=== PATIENT | female | born 1990 | race Caucasian/White ===

== ENCOUNTER 2016-12-20 01:45 | Emergency (ER) | payer OTHER ==
[~2016-12-20] VITALS: Ht 154.9 cm; Wt 61.2 kg
[2016-12-20 01:51] VITALS: BP 100/67
--- NOTE | 2016-12-20 02:56 | NUR ---
Patient ambulated to bed 07.
--- NOTE | 2016-12-20 03:06 | NUR ---
Dr. Givens evaluating patient at bedside.
--- NOTE | 2016-12-20 03:15 | NUR ---
LAB at bedside.
--- NOTE | 2016-12-20 03:31 | NUR ---
RT FLANK PAIN RADIATING TO HER BACK STARTED LAST NIGHT AT 2100HOUR, LMP JULY, 18 WEEKS PT DENIES N/V/D; SKIN IS PINK/WARM/DRY; AAOX4 WITH EVEN AND STEADY GAIT; LUNGS CLEAR BL; HR EVEN AND REGULAR; PT DENIES ANY FEVER, CP, SOB, OR COUGH AT THIS TIME; PATIENT STATES PAIN OF 9/10 AT THIS TIME; VSS; PATIENT POSITIONED FOR COMFORT; HOB ELEVATED; BEDRAILS UP X2; BED DOWN. ER MD MADE AWARE OF PT STATUS.
--- NOTE | 2016-12-20 03:37 | NUR ---
Patient going to US via wheelchair per tech.
--- NOTE | 2016-12-20 03:40 | NUR ---
PT TO US
--- NOTE | 2016-12-20 04:03 | NUR ---
Patient back from US via wheelchair per tech.
--- NOTE | 2016-12-20 04:15 | NUR ---
PT RETURNED FROM US
[2016-12-20 05:33] VITALS: BP 96/56
--- NOTE | 2016-12-20 05:33 | NUR ---
Patient discharged with v/s stable. Written and verbal after care instructions given and explained. Patient verbalized understanding. Ambulatory with steady gait. All questions addressed prior to discharge. Advised to follow up with PMD.
== END 2016-12-20 05:33 | disposition home or self-care (01) ==
LOC: MED 01:45
DX: O26.892 Other specified pregnancy related conditions, second trimester (principal); R10.9 Unspecified abdominal pain; R11.0 Nausea; Z3A.18 18 weeks gestation of pregnancy

== ENCOUNTER 2019-03-03 16:16 | Emergency (ER) | payer SELFPAY ==
[~2019-03-03] VITALS: Ht 154.9 cm; Wt 62.7 kg
[2019-03-03 16:36] VITALS: BP 112/77
--- NOTE | 2019-03-03 17:43 | NUR ---
returned from radiology
--- NOTE | 2019-03-03 18:00 | NUR ---
28 Y FEMALE BIB SELF C/O LT ARM PAIN SINCE 02/25/19 AFTER RECIEVING A TB TEST, PT HAS + RESULT WITH INDURATION OF 20MM. PT CAME INTO ER TO RECIEVE CHEST X-RAY AND CONFIRM RESULTS. PT ALSO REPORTS LOWER BACK PAIN X1 MONTH AND PAIN IS GETTING WORSE. PAIN 8/10. VSS AT THIS TIME. PT AA0X4. BED IS DOWN, LOCKED, BED RAIL X 1, ERMD TO SEE PT. MEDHX:GALSTONES RX:DENIES
--- NOTE | 2019-03-03 19:11 | NUR ---
ASSUMED CARE OF PT FROM MARJORIE RIZZO.
--- NOTE | 2019-03-03 19:45 | NUR ---
Dr. Simmons states pt is a possible TB patient and needs to be moved to bed 1. Mask provided to patient.
--- NOTE | 2019-03-03 20:00 | NUR ---
Dr. Simmons evaluating patient at bedside.
--- NOTE | 2019-03-03 20:06 | NUR ---
PT MOVED TO ED 01, REPORT TO MARJORIE HERNÁNDEZ.
--- NOTE | 2019-03-03 20:38 | NUR ---
Patient discharged with v/s stable. Patient acting approprialty, states pain has decreased to 3/10. Copy of chest x-ray provided to patient with written and verbal after care instructions given and explained. Patient alert, oriented and verbalized understanding of instructions. Ambulatory with steady gait. All questions addressed prior to discharge. ID band removed. Patient advised to follow up with PMD. Rx of Rifampin, and Acetaminophen given. Patient educated on indication of medication including possible reaction and side effects. Opportunity to ask questions provided and answered.
[2019-03-03 20:41] VITALS: BP 102/60
[2019-05-01] MEDS ORDERED: AMOX500C25 PO (19:45)
== END 2019-03-03 20:38 | disposition home or self-care (01) ==
LOC: MED 16:16
DX: R76.11 Nonspecific reaction to tuberculin skin test without active tuberculosis (principal); M54.5 Low back pain
CPT/HCPCS: 71045; 99283

== ENCOUNTER 2019-05-05 06:52 | Inpatient (IN) | payer OTHER ==
[~2019-05-05] VITALS: Ht 154.9 cm; Wt 63.5 kg
[2019-05-05] MEDS ORDERED: BUPIVACAINE-MPF/EPI 0.25% 30 ML VIAL INJ ONE (09:10)
[2019-05-05] MEDS ORDERED: GLYCOPYRROLATE 0.2 MG/ML VIAL ONE (09:28)
[2019-05-05] MEDS ORDERED: NEOSTIGMINE 1:1000 10 MG/10 ML VIAL ONE (09:28)
[2019-05-05] MEDS ORDERED: LIDOCAINE 2% 100 MG/5 ML SYR IVP ONE (09:28)
[2019-05-05] MEDS ORDERED: ONDANSETRON 4 MG/2 ML VIAL ONE (09:28)
[2019-05-05] MEDS ORDERED: DESFLURANE 240 ML BTL INH ONE (09:28)
[2019-05-05] MEDS ORDERED: PROPOFOL 200 MG/20 ML VIAL IV ONE (09:28)
[2019-05-05] MEDS ORDERED: DEXAMETHASONE 4 MG/ML VIAL ONE (09:28)
[2019-05-05] MEDS ORDERED: ROCURONIUM 50 MG/5 ML VIAL IV ONE (09:28)
[2019-05-05] MEDS ORDERED: KETOROLAC 30 MG/ML VIAL ONE (09:28)
[2019-05-05] MEDS ORDERED: SUCCINYLCHOLINE CHLORIDE 200 MG/10 ML VIAL IVP ONE (09:28)
[2019-05-05] MEDS ORDERED: MIDAZOLAM 2 MG/2 ML VIAL ONE (09:43)
[2019-05-05] MEDS ORDERED: fentaNYL 0.05 MG/ML VIAL ONE (09:44)
[2019-05-05] MEDS ORDERED: ONDANSETRON 4 MG/2 ML VIAL IVP PRN (10:10)
[2019-05-05] MEDS ORDERED: MORPHINE SULFATE 4 MG/ML SYR IV PRN (11:20)
[2019-05-05] MEDS ORDERED: HYDROmorphone 1 MG/ML AMP IVP PRN (11:20)
[2019-05-05] MEDS ORDERED: HYDROcodone/APAP 5/325 MG 1 TAB TAB PO PRN (11:20)
[2019-05-05] MEDS ORDERED: MORPHINE SULFATE 2 MG/ML SYR IVP PRN (11:20)
[2019-05-05] MEDS ORDERED: ONDANSETRON 4 MG/2 ML VIAL IV PRN (11:20)
[2019-05-05] MEDS: HYDROmorphone 1 MG/ML AMP IVP PRN ×2 (11:52→12:02)
[2019-05-05] MEDS ORDERED: HYDROmorphone PFS 2 MG/ML SYR ONE (12:02)
[2019-05-05 12:25] VITALS: BP 99/68
--- NOTE | 2019-05-05 12:25 | NUR ---
RECEIVED PT FROM OR NURSE, ELISABET, PT IS AWAKE AND LYING ON THE BED, IV LINE ON THE LEFT HAND G. 20 WITH LR INFUSING. PT IS S/P LAPAROSCOPIC CHOLECYSTECTOMY, WITH 3 SURGICAL INCISIONS, AND A RESHMA BULB IN PLACE WITH 5ML DRAIN. ON THE BEDSIDE, VITAL SIGNS TAKEN AND BP IS 99/68, PULSE IS 60, TEMPERATURE IS 97.2, O2 SATURATION IS 97%. NO SIGN OF DISTRESS NOTED AND WILL MONITOR PT.
--- NOTE | 2019-05-05 12:26 | NUR ---
PT IS ADMITTED TO [facility] FOR OBSERVATION.
[2019-05-05] MEDS: NACL 0.9% 1,000 ML IV SCH (13:13)
--- NOTE | 2019-05-05 13:13 | NUR ---
IVF OF NS WAS STARTED TO PT NOW WITH A RATE OF 50ML/HR.
--- NOTE | 2019-05-05 13:14 | NUR ---
PT WAS GIVEN ANCEF NOW VIA IVPB WILL MONITOR PT.
[2019-05-05 13:25] VITALS: BP 98/67
--- NOTE | 2019-05-05 15:46 | NUR ---
PT IS AWAKE AND LYING ON THE BED, C/O PAIN RATE OF 9/10, MEDICATED WITH DILAUDID, V/S TAKEN AND BP IS 102/75, PULSE IS 67, O2 SATURATION IS 96%. WILL MONITOR PT.
[2019-05-05 16:00] VITALS: BP 102/75
--- NOTE | 2019-05-05 19:15 | NUR ---
ENDORSED PT TO FOOD PRODUCTION ASSOCIATE NURSE FOR CONTINUITY OF CARE.
--- NOTE | 2019-05-05 19:15 | NUR ---
RECIEVED PT AAOX4 , NID , POST SURGICAL DRESSING INTACT , WITH BLOODY ANTONIO ON THE SURFACE OF THE DRESSING - MARKED IT WITH PEN AND WILL LOSELY MONITOR THE PROGRESSING OF IT ,BUT AT THIS TIME NO S/SX OF ACTIVE BLEEDING THERE IS ONLY 20CC POST OP DRAINAGE PER DRAINAGE BAG WITH LIGHT RED IN COLOR , ABDOMEN IS SOFT , V/S IS WNL.IV SITE INTACT AND PATENT , PLAN OF CARE DISCUSSED AND VERBALIZE UNDERSTANDING . CALL LIGHT WITHIN REACH BED IN LOW POSITION , SIDERAILS UP X2, COMPLAINING OF PAIN - WILL MEDICATE AND WILL CONT. TO MONITOR , VOIDED FREELY PER BATHROOM .
[2019-05-05 20:00] VITALS: BP 102/72
--- NOTE | 2019-05-05 22:10 | NUR ---
DR VILLA CALLED VIS PHONE - NO FURTHER ORDER MADE.
[2019-05-05] MEDS ORDERED: ceFAZolin 1,000 MG VIAL ONE (22:25)
[2019-05-06] VITALS (9 sets, daily range): BP systolic 87–110; BP diastolic 49–65
--- NOTE | 2019-05-06 | NUR ---
MADE ROUNDS , RESP. EVEN AND UNLABORED , BLOODY ANTONIO ON THE SURFACE OF THE SURGICAL DRESSING REMAINS THE SAME . THERE IS LIGHT RED DRAINAGE IN DRAINAGE BAG ESTIMATED 30CC . WITH BEARABLE PAIN PT. SAID . BP 110/60MMHG. WILL CONT. TO MONITOR.
--- NOTE | 2019-05-06 02:00 | NUR ---
MADE ROUNDS . RESP EVEN AND UNLABORED . WITH SAME BLOODY ANTONIO ON THE DRESSING . PT VOIDED FREELY . WILL CONT. TO MONITOR. CALL LIGHT WITHIN REACH.
--- NOTE | 2019-05-06 04:00 | NUR ---
MADE ROUNDS , BP 90/60 MMHG. HI 76 . O2 SAT.99%,NO PROGRESS ON MARKED BLOODY ANTONIO ON SURGICAL DRESSING , ABD. SOFT , NO DIZINEESS , VOIDED FREELY, WITH 10CC LIGHTLY RED DRAINAGE THRU DRAINAGE JVAC , WITH BEARABLE PAIN PT'S SAID - CHARGE INFORM.CALL LIGHT WITHIN REACH , WILL MONITOR. Addendum: 05/06/19 at 0540 by Radha Nair RN PT HAS POOR ORAL FLUID INTAKE FOR THE WHOLE SHIFT ONLY 120CC -IVF INFUSING WELL.
--- NOTE | 2019-05-06 05:27 | NUR ---
PERSISTENT BP 90/60 MMHG ,DRAINAGE IN THE JVAC STILL 10CC SLIGHTLY RED , WITH BEARABLE PAIN , ABD. SOFT , NE 76 , 02 SAT 100 % NO PROGRESS ON MARKED BLOODY ANTONIO ON DRESSING . AFEBRILE , CALL LIGHT WITHIN REACH , WILL CONT. TO MONITOR.- SENT INFO- INFORMED AP ABOPUT PT'S CONDITION.
--- NOTE | 2019-05-06 06:00 | NUR ---
BP PERSISTENT 9O/60 - INFORMED CHARGE NURSE - VOIDED FREELY - GOOD U.O. NO PROGRES IN MARKED BLOODY ANTONIO IN DRESSING, CR 78. ENCOURAGED FLD. INTAKE. WASITING FOR AP TO CALL BACK.
--- NOTE | 2019-05-06 07:20 | NUR ---
ENDORSED TO AM SHIFT FOR CONT. OF CARE LATEST BP 90/60MMHG NOT TACHYCARDIC -78 BPM.
--- NOTE | 2019-05-06 07:25 | NUR ---
RECEIVED PT FROM LICENSE DISTRIBUTOR NURSE, PT IS AWAKE AND LYING ON THE BED, WITH IV LINE ON THE LEFT HAND G. 20 WITH NS INFUSING AT 50ML/HR, HAS 4 SURGICAL INCISIONS WITH RESHMA BULB IN PLACE, SIDE RAILS ARE UP AND CALL LIGHT WITHIN REACH, PT C/O PAIN ON THE INCISION SITE. NO SIGN OF DISTRESS NOTED. WILL MONITOR PT.
--- NOTE | 2019-05-06 08:33 | NUR ---
PATIENT HAS BEEN SCREENED AND CATEGORIZED MODERATE NUTRITION RISK. PATIENT WILL BE SEEN WITHIN 3-5 DAYS OF ADMISSION. 05/08/19[address]TI [address]
[2019-05-06] MEDS: NACL 0.9% 1,000 ML IV SCH (09:25)
--- NOTE | 2019-05-06 09:35 | NUR ---
CALLED DR. VILLA AND SENT A MESSAGE TO INFORM REGARDING THE PT'S BP OF 88/51, AWAITING MD CALL BACK.
--- NOTE | 2019-05-06 12:28 | NUR ---
SPOKE WITH DR. VILLA REGARDING PT'S LATEST V/S. NEW ORDERS GIVEN. EDWAR ASSIGNED MADE AWARE.
[2019-05-06 13:12] LABS: BASOPHILS % (AUTO) 0.4 % (0.0-2.0); EOSINOPHILS # (AUTO) 0.1 K/uL (0-0.4); EOSINOPHILS % (AUTO) 0.8 % (0.0-4.0); HEMATOCRIT 36.3 % (36-48); HEMOGLOBIN 12.1 g/dL (12.0-16.0); LYMPHOCYTES % (AUTO) 30.3 % (20.5-51.1); MEAN CORPUSCULAR HEMOGLOBIN 32 pg (27-31); MEAN CORPUSCULAR HGB CONC 34 g/dL (33-37); MEAN CORPUSCULAR VOLUME 94.2 fL (80-94); MONOCYTES # (AUTO) 0.9 K/uL (0.8-1.0); MONOCYTES % (AUTO) 8.7 % (1.7-9.3); NEUTROPHILS # (AUTO) 5.8 K/uL (1.8-7.7); NEUTROPHILS % (AUTO) 59.8 % (42.2-75.2); PLATELET COUNT (AUTO) 306 K/uL (140-450); RED BLOOD CELL COUNT(AUTO) 3.85 MIL/uL (4.20-5.40); RED CELL DISTRIBUTION WIDTH 13.3 % (11.6-13.7); WHITE BLOOD COUNT (AUTO) 9.8 K/uL (4.8-10.8)
--- NOTE | 2019-05-06 15:13 | NUR ---
APPOINTMENT IEHP: Called & made f/u appt w PCP Dr Jose Clark for May 15 @ 215pm. Gave pt appt @ bedside & agreeable. Informed pt's nurseImelda.
--- NOTE | 2019-05-06 16:00 | NUR ---
DR. VILLA MADE A VERBAL ORDER TO GIVE PT A 4MG MORPHINE, MD WAS INFORMED THAT THE PT'S BP IS 94/58 AND MD SAID THAT IT IS FINE TO GIVE PAIN MEDICATION.
--- NOTE | 2019-05-06 16:20 | NUR ---
DR. VILLA REMOVED THE PT'S RESHMA BULB NOW.
[2019-05-06] MEDS ORDERED: MORPHINE SULFATE 4 MG/ML SYR ONE (16:25)
[2019-05-06 18:13] LABS: ALBUMIN 3.3 g/dL (3.4-5.0); CARBON DIOXIDE 29.6 mmol/L (21-32); CREATININE 0.7 mg/dL (0.6-1.3); POTASSIUM 3.6 mmol/L (3.5-5.1); TOTAL BILIRUBIN 0.6 mg/dL (0.0-1.0)
--- NOTE | 2019-05-06 19:20 | NUR ---
ENDORSED PT TO VISUAL EFFECTS EDITOR NURSE FOR CONTINUITY OF THE DISCHARGE PROCESS.
--- NOTE | 2019-05-06 19:21 | NUR ---
RECEIVED REPORT FROM AM NURSE. PT SITTING IN BED, AWAKE, ALERT AND ORIENTED X4. ABLE TO ANSWER QUESTIONS AND FOLLOW COMMANDS. VISIBLE CHEST RISE AND FALL ON ROOM AIR, NO DISTRESS NOTED. LEFT HAND 20G INTACT AND INFUSING WELL. AT BEDSIDE. NO C/O DISCOMFORT. SAFETY MEASURES IN PLACE. CALL LIGHT WITHIN REACH.
--- NOTE | 2019-05-06 19:45 | NUR ---
WENT OVER DISCHARGE INSTRUCTIONS WITH PT AND . PT AND VERBALIZED UNDERSTANDING. PT SIGNED D/C PAPERWORK. PT AWAKE, ALERT AND ORIENTED X4. VISIBLE CHEST RISE AND FALL, EQUAL AND UNLABORED ON ROOM AIR. PT HAS 3 ABDOMINAL SURGICAL WOUNDS, LINDA INTACT. RIGHT HAND 20G REMOVED, CANNULA INTACT. PT STABLE AT THIS TIME. PT ESCORTED OUT VIA WHEEL CHAIR TO PRIVATE VEHICLE TO BE TAKEN HOME BY . ARM BAND REMOVED.
== END 2019-05-06 19:45 | disposition home or self-care (01) | DRG 263 ==
LOC: MDS 06:52 → MMU 06:52 → MDS 21:50 → MMU 21:51
PROVIDERS: ADMIT Surgery; ATTEND Surgery
PROC: 0FT44ZZ Resection of Gallbladder, Percutaneous Endoscopic Approach (ICD-10-PCS; principal; 2019-05-06)
DX: K80.10 Calculus of gallbladder with chronic cholecystitis without obstruction (principal); Z82.49 Family history of ischemic heart disease and other diseases of the circulatory system; Z83.3 Family history of diabetes mellitus
CPT/HCPCS: 36415; 71045; 80053; 82374; 85025; 87081; 88304; C1887; J0330; J0690; J1100; J1170; J1885; J2001; J2250; J2270; J2405; J2704; J2710; J3010; J3490; J7030; J7060; J7120; Q0092

== ENCOUNTER 2021-10-25 09:34 | Emergency (ER) | payer OTHER ==
[~2021-10-25] VITALS: Ht 154.9 cm; Wt 63.5 kg
[2021-10-25 09:44] VITALS: BP 112/63
--- NOTE | 2021-10-25 09:54 | NUR ---
PATIENT AMBULATED TO BED 6.
--- NOTE | 2021-10-25 10:20 | NUR ---
31 y/o female bib self from home, c/o shetty for 3 weeks centralized to top of the head. denies head injury, fall or loc. pt states she has sensitivity to loud noises and sometimes to light. also c/o "throat congestion". pt states she had the nexplanon implant removed 3 weeks ago in her left arm. pt has bruising around site and on left lower arm. denies nausea, vomiting, diarrhea. skin is pink/warm/dry. a&o x4 with even and steady gait. lungs clear bl, heart rate even and regular. pt denies dysuria, hematuria, urinary frequency or retention, or anyone sick in the household with the same symptoms. pt denies any fever, cp, sob, or cough at this time. pt states pain is 8/10 at this time. vss. patient positioned for comfort. hob elevated. bed down. ermd made aware of pt. pmh: thyroid disease, 2016 dvt nka med: ibuprofen 1200mg (last night no relief)
[2021-10-25] MEDS ORDERED: PROC-62 PO (10:28)
--- NOTE | 2021-10-25 10:39 | NUR ---
Patient discharged with v/s stable. Written and verbal after care instructions given and explained. Patient alert, oriented and verbalized understanding of instructions. Ambulatory with to car. All questions addressed prior to discharge. ID band removed. Patient advised to follow up with PMD. Rx of compazine (sent) given. Patient educated on indication of medication including possible reaction and side effects. Opportunity to ask questions provided and answered.
[2021-10-25 10:40] VITALS: BP 112/63
== END 2021-10-25 10:40 | disposition home or self-care (01) ==
LOC: MED 09:34
DX: G44.209 Tension-type headache, unspecified, not intractable (principal)
CPT/HCPCS: 81002; 81025; 99282